=== PATIENT | female | born 1940 | race Caucasian/White ===

== ENCOUNTER → 2016-04-20 | Outpatient (CLI) | payer OTHER ==
[~2016-04-20] MED LIST: AMIT10TA6 PO; ASPEC325 PO; ATOR-22 PO; CHOL100027 PO; CLTP PO; CYCL10TA6 PO; DOCU100C PO; GABA-113 PO; GLC500 PO; LEVO50TA PO; METH-307 PO; MORP15TA PO; MULT-506 PO; POLY335040 PO; ZNTT/150 PO
== END | disposition home or self-care (01) ==
LOC: C.PATHSPEC 17:44
PROVIDERS: ATTEND Ophthalmology
DX: D23.11 Other benign neoplasm of skin of right eyelid, including canthus (principal)

== ENCOUNTER → 2016-07-19 | Outpatient (CLI) | payer OTHER ==
[2016-07-19 12:26] LABS: ESTIMATED AVERAGE GLUCOSE 163 mg/dl; HA1C FLAG Normal (Normal)
[2016-07-19 12:37] LABS: ALT/SGPT 28 U/L (12-78); AST/SGOT 18 U/L (15-37); BLOOD UREA NITROGEN 12 mg/dl (7-18); BUN/CREATININE RATIO 12.8 (10-20); CARBON DIOXIDE 29 mmol/L (21-32); CHLORIDE 105 mmol/L (98-107); CHOLESTEROL 225 mg/dl (0-200); GLUCOSE 113 mg/dl (70-99); POTASSIUM 3.8 mmol/L (3.5-5.1); SODIUM 142 mmol/L (136-145); TRIGLYCERIDES 231 mg/dl (0-150); VERY LOW DENSITY LIPOPROT CALC 46 mg/dl
[2016-07-19 12:41] LABS: CALCIUM 9.2 mg/dl (8.5-10.1)
[2016-07-19 12:47] LABS: ALB/GLOB RATIO 0.9 (0.9-2); ALKALINE PHOSPHATASE 93 U/L (45-117); CHOLESTEROL/HDL RATIO 4.6; HDL CHOLESTEROL 49 mg/dl; LDL CHOLESTEROL CALCULATED 130 mg/dl; THYROID STIMULATING HORMONE 0.842 uIu/ml (0.300-4.500)
[2016-07-19 12:51] LABS: RATIO 11.1 mcg/mg (0-30.0)
== END | disposition home or self-care (01) ==
LOC: C.LABBFT 07:53
PROVIDERS: ATTEND Internal Medicine
DX: E11.49 Type 2 diabetes mellitus with other diabetic neurological complication (principal); E03.9 Hypothyroidism, unspecified

== ENCOUNTER → 2016-08-06 | Outpatient (CLI) | payer OTHER ==
--- NOTE | 2016-08-06 13:13 | DIAGNOSTIC IMAGING REPORT ---
THORACIC SPINE 3 VIEWS CLINICAL HISTORY: Thoracic back pain. FINDINGS: AP, lateral, and swimmer's views of the thoracic spine are correlated with lateral chest radiograph dated 05/11/2013. The skeletal structures are osteopenic. There is no radiographic evidence of fracture or malalignment. Vertebral body height and alignment are maintained throughout the thoracic spine. Hyperkyphosis is observed. Anterior osteophytes are seen throughout. There is mild multilevel degenerative disc space narrowing. Foci of degenerative endplate sclerosis are identified at several levels. The transverse processes and pedicles appear intact on the frontal view. The lung parenchyma is clear as visualized noting elevation right hemidiaphragm. IMPRESSION: 1. No acute bony abnormality is seen involving the thoracic spine. 2. Osteopenia, hyperkyphosis, and mild spondylotic change as above. Electronically signed by: Ricky Padilla M.D. 08/06/2016 1:11 PM Dictated Date/Time: 08/06/2016 1:10 PM
[2016-08-06 13:14] LABS: BASO % 0.3 %; BASO ABS # 0.03 K/uL (0-0.2); COMPLETE YES; HEMATOCRIT 39.9 % (37-47); IG% 0.4 %; LYMPH % 36.1 %; LYMPH ABS # 4.09 K/uL (1.2-3.4); MEAN CELL VOLUME 96.8 fL (80-100); MEAN CORPUSCULAR HEMOGLOBIN 31.8 pg (25-34); MEAN CORPUSCULAR HGB CONC 32.8 g/dl (32-36); MEAN PLATELET VOLUME 9.7 fL (7.4-10.4); MONO % 8.4 %; NEUT % 53.8 %; PLATELET COUNT 294 K/uL (130-400); RED BLOOD COUNT 4.12 M/uL (4.2-5.4); WHITE BLOOD COUNT 11.32 K/uL (4.8-10.8)
--- NOTE | 2016-08-06 13:17 | DIAGNOSTIC IMAGING REPORT ---
LUMBAR SPINE 5 VIEWS CLINICAL HISTORY: Low back pain. FINDINGS: Five views of the lumbar spine are obtained. Correlation is made with MRI of lumbar spine dated 01/19/2008. The skeletal structures are osteopenic. There is no radiographic evidence of fracture. Vertebral body height is maintained throughout the lumbar spine. There is minimal anterolisthesis at L4-L5. Alignment is otherwise preserved. Small anterior osteophytes are seen throughout. The transverse and spinous processes appear intact. There is no evidence of spondylolysis. Facet arthropathy is seen in the lower lumbar region. There is moderate degenerative disc space narrowing at L4-L5 and L5-S1. Mild disc space narrowing is seen at the remaining lumbar levels. The visualized bony pelvis appears intact. Mild sclerotic change is noted in the sacroiliac joints and pubic symphysis. There are numerous pelvic phleboliths. A nonobstructed abdominal bowel gas pattern is noted. IMPRESSION: 1. No acute bony abnormality is seen involving the lumbar spine. 2. Osteopenia and spondylotic change as above. Dictated: 08/06/2016 1:12 PM Transcribed: 08/06/2016 1:15 PM CHEN_Kahlil Electronically signed by: Ricky Padilla M.D. 08/06/2016 1:16 PM Dictated Date/Time: 08/06/2016 1:12 PM
[2016-08-06 13:41] LABS: BLOOD UREA NITROGEN 18 mg/dl (7-18); CALCIUM 8.5 mg/dl (8.5-10.1); CARBON DIOXIDE 29 mmol/L (21-32); CHLORIDE 104 mmol/L (98-107); CREATININE 0.91 mg/dl (0.60-1.20); GLUCOSE 115 mg/dl (70-99); POTASSIUM 4.4 mmol/L (3.5-5.1); SODIUM 139 mmol/L (136-145)
== END | disposition home or self-care (01) ==
LOC: C.RAD1850 12:18
PROVIDERS: ATTEND Nurse Practitioner
DX: M85.88 Other specified disorders of bone density and structure, other site (principal); M53.3 Sacrococcygeal disorders, not elsewhere classified; M54.9 Dorsalgia, unspecified

== ENCOUNTER → 2016-10-05 | Outpatient (CLI) | payer OTHER ==
[~2016-10-05] MED LIST changes: +REGADENOSON 0.4 MG/5 ML SYR ONE
--- NOTE | 2016-10-05 16:29 | MYOCARDIAL PERFUSION SCAN ---
ONE-DAY NUCLEAR MEDICINE TECHNETIUM-99M MYOCARDIAL PERFUSION SCAN CLINICAL HISTORY: The patient has experienced chest discomfort, dyspnea, and orthostatic dizziness. No known history of coronary artery disease. COMPARISON: None. TECHNIQUE: For the stress portion of the study, 31.8 mCi of Technetium 99m Cardiolite IV was injected at 1:40 p.m. on 10/05/2016. Thirty minutes following the injection, imaging of the heart was performed in multiple projection. For the rest portion of the study, 11 mCi of Technetium 99m Cardiolite was injected IV at 11:30 a.m. One hour following the injection, imaging of the heart was performed in the same projections. For the stress portion of the study, 0.4 mg of Lexiscan was injected intravenously as per protocol. The patient did not experience chest discomfort. Baseline EKG noted sinus rhythm with an old inferior myocardial infarction and poor R-wave progression across the anterior precordium. No ST segment changes were seen with Lexiscan infusion. Following the study, the patient was hemodynamically stable without complaints. FINDINGS: The short axis, vertical long axis, horizontal long axis images were reviewed in detail. There is normal myocardial perfusion at both stress and rest. This rules out a prior myocardial infarction and stress induced myocardial ischemia. Left ventricle demonstrates hyperdynamic systolic function with a left ventricular ejection fraction of 83%. There are no wall motion abnormalities. CONCLUSIONS: 1. No scintigraphic evidence of a prior myocardial infarction or stress induced myocardial ischemia. 2. No Lexiscan induced chest pain. 3. No Lexiscan induced EKG changes. 4. Hyperdynamic left ventricular ejection fraction of 83% without wall motion abnormalities.
== END | disposition home or self-care (01) ==
LOC: C.NUCL 10:57
PROVIDERS: ATTEND Internal Medicine
DX: R07.89 Other chest pain (principal); R42 Dizziness and giddiness; R06.02 Shortness of breath

== ENCOUNTER → 2017-01-24 | Outpatient (CLI) | payer OTHER ==
[~2017-01-24] MED LIST changes: -REGADENOSON 0.4 MG/5 ML SYR ONE
[2017-01-24 12:17] LABS: HEMATOCRIT 43.7 % (37-47); MEAN CELL VOLUME 97.5 fL (80-100); MEAN CORPUSCULAR HEMOGLOBIN 31.9 pg (25-34); MEAN CORPUSCULAR HGB CONC 32.7 g/dl (32-36); MEAN PLATELET VOLUME 10.2 fL (7.4-10.4); PLATELET COUNT 308 K/uL (130-400); RED BLOOD COUNT 4.48 M/uL (4.2-5.4); WHITE BLOOD COUNT 7.12 K/uL (4.8-10.8)
[2017-01-24 12:25] LABS: ALT/SGPT 27 U/L (12-78); BLOOD UREA NITROGEN 15 mg/dl (7-18); CALCIUM 9.1 mg/dl (8.5-10.1); CARBON DIOXIDE 28 mmol/L (21-32); CHLORIDE 103 mmol/L (98-107); CHOLESTEROL 237 mg/dl (0-200); CREATININE 0.89 mg/dl (0.60-1.20); GLUCOSE 127 mg/dl (70-99); POTASSIUM 4.3 mmol/L (3.5-5.1); SODIUM 137 mmol/L (136-145); TRIGLYCERIDES 235 mg/dl (0-150); VERY LOW DENSITY LIPOPROT CALC 47 mg/dl
[2017-01-24 12:35] LABS: ALB/GLOB RATIO 0.9 (0.9-2); ALKALINE PHOSPHATASE 96 U/L (45-117); AST/SGOT 20 U/L (15-37); CHOLESTEROL/HDL RATIO 4.4; HDL CHOLESTEROL 54 mg/dl; LDL CHOLESTEROL CALCULATED 136 mg/dl; THYROID STIMULATING HORMONE 0.707 uIu/ml (0.300-4.500)
[2017-01-24 12:41] LABS: ESTIMATED AVERAGE GLUCOSE 154 mg/dl; HA1C FLAG Normal (Normal)
== END | disposition home or self-care (01) ==
LOC: C.LABBFT 08:11
PROVIDERS: ATTEND Internal Medicine
DX: E11.49 Type 2 diabetes mellitus with other diabetic neurological complication (principal)

== ENCOUNTER → 2017-04-05 | Outpatient (CLI) | payer OTHER ==
[~2017-04-05] MED LIST changes: +RANI150T85 PO; -ZNTT/150 PO
--- NOTE | 2017-04-05 15:24 | MAMMOGRAPHY REPORT ---
BILATERAL DIGITAL SCREENING MAMMOGRAM TOMOSYNTHESIS WITH CAD: 04/05/2017 CLINICAL HISTORY: Routine screening. Patient has no complaints. TECHNIQUE: Breast tomosynthesis in addition to standard 2D mammography was performed. Current study was also evaluated with a Computer Aided Detection (CAD) system. COMPARISON: Comparison is made to exams dated: 07/25/2015 mammogram, 05/21/2014 mammogram, 12/17/2011 ma mmogram, 12/24/2009 mammogram - [facility], 03/09/2004 mammogram, and 01/09/1999 chidi mogram. BREAST COMPOSITION: There are scattered areas of fibroglandular density in both breasts. FINDINGS: There are moderate vascular calcifications and scattered benign coarse calcifications in th e breasts. No suspicious mass, architectural distortion or cluster of suspicious microcalcifications is seen. IMPRESSION: ACR BI-RADS CATEGORY 1: NEGATIVE There is no mammographic evidence of malignancy. A 1 year screening mammogram is recommended. The pa tient will receive written notification of the results. Approximately 10% of breast cancers are not detected with mammography. A negative mammographic report should not delay biopsy if a clinically suggestive mass is present. Lilian Hansen M.D. ay/:04/05/2017 13:33:03 Machine Lacer: Lillian PRESSLEY(R)(M), [facility] letter sent: Normal 1/2 BI-RADS Code: ACR BI-RADS Category 1: Negative
== END | disposition home or self-care (01) ==
LOC: C.MAMM 10:54
PROVIDERS: ATTEND Internal Medicine
DX: Z12.31 Encounter for screening mammogram for malignant neoplasm of breast (principal)